=== PATIENT | female | born 1990 | race Caucasian/White ===

== ENCOUNTER 2021-01-25 14:10 | Emergency (ER) | payer OTHER, SELFPAY ==
[2021-01-25 14:25] VITALS: BP 105/64; PULSE 74; RESP 20; TEMP 37.1; O2SAT 96
--- NOTE | 2021-01-25 15:07 | ED.GENADULT ---
HPI - General Adult General Chief complaint: Back Pain/Injury Stated complaint: Back Injury Time Seen by Provider: 01/25/21 15:07 Source: patient and RN notes reviewed Mode of arrival: ambulatory Limitations: no limitations History of Present Illness HPI narrative: 30 year old female who presents to [facility] with complaints of lower back pain this morning with no recent injury to her back. Patient states has had back injury in the past with MRI showing she had a bulging lumbar disc but has never had any surgery to her back. Patient is wearing a walking boot to her left foot for previous foot injury 2 months ago and just started wearing boot this week after seeing a heading saw operator for continued issues with her foot. Patient states that she has some radiation of her pain to her buttocks into her upper posterior thighs but denies any tingling or numbness to her leg or feet. She reports that she has been taking Naprosyn and Tylenol for discomfort with pain presently throbbing at 7/10 MD complaint: back pain Onset (ago): day(s) (2) Radiation: other (to posterior thighs) Severity: moderate Severity scale (1-10): 7 Quality: other (throbbing) Pain Consistency: constant Relieving factors: medication and rest Exacerbating factors: movement Treatments prior to arrival: NSAID Related Data Home Medications Medication Instructions Recorded Confirmed buspirone mg 01/25/21 escitalopram oxalate mg 01/25/21 trazodone 01/25/21 ziprasidone HCl 01/25/21 Allergies Allergy/AdvReac Type Severity Reaction Status Date / Time No Known Allergies Allergy Unknown Verified 01/25/21 14:42 Review of Systems Review of Systems: Narrative: CONSTITUTIONAL: Denies fever, chills, or sweats. EYES: Denies visual changes, redness, or discharge. ENT: Denies rhinorrhea, congestion, sore throat, or otalgia. CARDIOVASCULAR: Denies chest pain, palpitations, or edema. RESPIRATORY: Denies cough or dyspnea. GASTROINTESTINAL: Denies abdominal pain, nausea, vomiting, or diarrhea. GENITOURINARY: Denies dysuria or hematuria. SKIN: Denies rash or itching. MUSCULOSKELETAL:Positive for lumbar back pain radiating to buttocks and upper posterior thighs, left foot discomfort and myalgia. NEUROLOGIC: Denies headache, numbness, or weakness. PSYCHIATRIC: Positive history of anxiety and depression. All systems reviewed & are unremarkable except as noted in HPI and below PMFSH Past Medical History Medical History (Updated 01/27/21 @ 16:50 by Laury Fry NP) Anxiety and depression Asthma Bulging lumbar disc Migraines Surgical History Surgical History (Updated 01/27/21 @ 16:42 by Laury Fry NP) No history of previous surgery Family History Family History (Updated 01/27/21 @ 15:31 by Laury Fry NP) Other No significant family history Social History Social History (Updated 01/27/21 @ 15:30 by Laury Fry NP) Smoking packs per day: 1 Smoking cigarettes per day: 20.0 Years smoked: 10 Smoking pack-years: 10.00 Smoking status: Former smoker Tobacco type: e-cigarettes/vaping Alcohol intake: former Alcohol use details: none since 2015 Substance use: former Substance use type: heroin Last use: none since 2015 Living arrangements: with family Gender identity (if verbalized by the patient): Female Exam Narrative: Exam Narrative: GENERAL: Well-appearing, well-nourished, and in no acute distress. HEAD: Normocephalic, atraumatic. EYES: PERRLA and EOMI. ENT: Nares clear, no rhinorrhea or epistaxis. Mucous membranes moist.TM's normal with good light reflex, throat pink with no exudates,lesions, or tonsil enlargement. NECK: Supple.no lymphadenopathy CHEST: Clear to auscultation. No respiratory distress.SAO2 96% on room air HEART: Regular rate and rhythm. No murmur heard. Normal peripheral pulses. ABDOMEN: Soft, nontender, nondistended, normal active bowel sounds. EXTREMITIES: Normal range of motion. No edema.Arvind
== END 2021-01-25 15:30 | disposition home or self-care (01) ==
PROVIDERS: Emergency Provider Registered Nurse; PCP Nurse Practitioner Adult Health
DX: M54.42 Lumbago with sciatica, left side (principal); M54.41 Lumbago with sciatica, right side; Z87.891 Personal history of nicotine dependence; J45.909 Unspecified asthma, uncomplicated; F41.9 Anxiety disorder, unspecified; F32.9 Major depressive disorder, single episode, unspecified
CPT/HCPCS: 99213; G0463

== ENCOUNTER 2021-02-10 16:39 | Emergency (ER) | payer OTHER, SELFPAY ==
--- NOTE | 2021-02-10 16:43 | ED.GENADULT ---
HPI - General Adult General Stated complaint: dizzy and nausea Time Seen by Provider: 02/10/21 16:43 Source: patient Mode of arrival: ambulatory Limitations: no limitations Related Data Home Medications Medication Instructions Recorded Confirmed buspirone mg 01/25/21 escitalopram oxalate mg 01/25/21 trazodone 01/25/21 ziprasidone HCl 01/25/21 Allergies Allergy/AdvReac Type Severity Reaction Status Date / Time No Known Allergies Allergy Unknown Verified 01/25/21 14:42 Review of Systems Review of Systems: Narrative: CONSTITUTIONAL: Denies fever, chills, or sweats. EYES: Denies visual changes, redness, or discharge. ENT: Denies rhinorrhea, congestion, sore throat, or otalgia. CARDIOVASCULAR: Denies chest pain, palpitations, or edema. RESPIRATORY: Denies cough or dyspnea. GASTROINTESTINAL: Denies abdominal pain, nausea, vomiting, or diarrhea. GENITOURINARY: Denies dysuria or hematuria. SKIN: Denies rash or itching. MUSCULOSKELETAL: Denies back pain, joint pain, or myalgia. NEUROLOGIC: Denies headache, numbness, or weakness. PSYCHIATRIC: Denies anxiety or depression. [facility] Past Medical History Medical History Anxiety and depression Asthma Bulging lumbar disc Migraines Surgical History Surgical History No history of previous surgery Family History Family History Other No significant family history Social History Social History Smoking packs per day: 1 Smoking cigarettes per day: 20.0 Years smoked: 10 Smoking pack-years: 10.00 Smoking status: Former smoker Tobacco type: e-cigarettes/vaping Alcohol intake: former Substance use: former Substance use type: heroin Last use: none since 2015 Gender identity (if verbalized by the patient): Female Comments At the time of my signature I agree with nursing past medical history, surgical, social, and family history. There is no relevant family history pertinent to the presenting complaint. Exam Narrative: Exam Narrative: GENERAL: Well-appearing, well-nourished, and in no acute distress. HEAD: Normocephalic, atraumatic. EYES: PERRLA and EOMI. ENT: Nares clear, no rhinorrhea or epistaxis. Mucous membranes moist. NECK: Supple. No lymphadenopathy CHEST: Clear to auscultation. No respiratory distress. HEART: Regular rate and rhythm. No murmur heard. Normal peripheral pulses. ABDOMEN: Soft, nontender, nondistended, normal active bowel sounds. EXTREMITIES: Normal range of motion. No edema. SKIN: Warm, dry, no rash. NEURO: No focal deficits. Alert and oriented x3. Course Vital Signs Vital signs: Vital signs reviewed Medical Decision Making Differential Diagnosis Differential Diagnosis: Differential diagnosis: Appendicitis, ovarian torsion, gallbladder disease, ovarian torsion, pancreatitis, lower lobe pneumonia,AAA, AMI or ACS, DKA, diverticulitis. Allergic rhinitis, chronic sinusitis, tonsillitis, acute sinusitis, infectious mononucleosis, seasonal influenza, pertussis, diphtheria, meningococcal disease, viral syndrome, viral bronchitis, RSV, community Critical Care Time Critical Care Time Critical Care Time: No Discharge Plan Discharge Prescriptions: No Action trazodone 50 mg tablet RF: 0 ziprasidone HCl 20 mg capsule RF: 0 buspirone 10 mg tablet RF: 0 escitalopram oxalate 20 mg tablet RF: 0 methylprednisolone [Medrol (Stephen)] 4 mg tablets,dose pack See Rx Instructions .ROUTE .COMPLEX Qty: 21 RF: 0 cyclobenzaprine 10 mg tablet 10 mg PO TID PRN (Reason: muscle spasm) Qty: 14 RF: 0
--- NOTE | 2021-02-10 18:18 | PC.NURSE ---
1640 per telephone, following registration prior to triage, Ragini requests a work note stating she was here today and could back to work. informed provider would see and evaluate her, however states she could not give a work note at this time. states she does not want be seen.
== END 2021-02-10 16:45 | disposition left against medical advice (07) ==
PROVIDERS: Emergency Provider Nurse Practitioner Family
DX: Z53.21 Procedure and treatment not carried out due to patient leaving prior to being seen by health care provider (principal)
CPT/HCPCS: 99199

== ENCOUNTER 2021-12-29 12:42 | Emergency (ER) | payer OTHER, SELFPAY ==
[2021-12-29] VITALS (8 sets, daily range): BP systolic 127–146; BP diastolic 66–84; PULSE 83–94; RESP 19–34; TEMP 36.4; O2SAT 94–97
--- NOTE | ~2021-12-29 | XR_ITS ---
EXAMINATION: XR chest 2V DATE: 12/29/2021 14:38 INDICATION: Cough and shortness of breath TECHNIQUE: PA and lateral views of the chest were obtained. COMPARISON: Chest radiograph dated 11/26/2017 FINDINGS: The lungs remain clear with no focal airspace opacities, pulmonary edema, pleural effusion or pneumot horax. The cardiomediastinal silhouette is normal. Visualized bones and soft tissues are unremarkable . IMPRESSION: 1. No acute cardiopulmonary disease. Reviewed, dictated and finalized at location A. [employer]
--- NOTE | 2021-12-29 12:54 | ED.SOB ---
HPI - SOB/Dyspnea General Chief Complaint: Shortness of Breath/Dyspnea Stated Complaint: sob, wheezing Time Seen by Provider: 12/29/21 12:47 Source: patient Mode of arrival: ambulatory Limitations: no limitations History of Present Illness HPI Narrative: Patient is a 31-year-old female complaining of shortness of breath, it is my asthma , coming by cough, nonproductive x2 weeks but worse for the past few days. Patient states that she takes albuterol for her asthma. Patient states that her asthma has been worse ever since she had Covid last month. Patient denies any chest pain, abdominal pain, nausea, vomiting, diaphoresis, fever or chills. Related Data Home Medications Medication Instructions Recorded Confirmed buspirone mg 01/25/21 escitalopram oxalate mg 01/25/21 trazodone 01/25/21 ziprasidone HCl 01/25/21 Allergies Allergy/AdvReac Type Severity Reaction Status Date / Time No Known Allergies Allergy Unknown Verified 02/10/21 16:49 Review of Systems Review of Systems: All systems reviewed & are unremarkable except as noted in HPI and below Constitutional: Constitutional: Denies body ache(s), Denies chills, Denies excessive sweating, Denies fatigue, Denies fever(s), Denies headache(s), Denies lethargy, Denies malaise, Denies weakness and Denies weight loss Eyes: Eyes: Denies blurry vision, Denies change in vision and Denies loss of vision ENT: Denies dizziness, Denies ear discharge, Denies headache(s), Denies lip swelling, Denies epistaxis, Denies nasal congestion, Denies neck pain, Denies throat swelling and Denies tongue swelling Cardiovascular: Cardiovascular: Denies chest pain, Denies chest pain at rest, Denies chest pain with activity, Denies diaphoresis, Denies rapid heart rate, Denies edema, Denies irregular heart rhythm, Denies lightheadedness and Denies palpitations Respiratory: Respiratory: Denies chest congestion and Denies hemoptysis Gastrointestinal: Gastrointestinal: Denies abdominal pain, Denies melena, Denies hematochezia, Denies diarrhea, Denies nausea, Denies vomiting and Denies hematemesis Musculoskeletal: Musculoskeletal: Denies abnormal gait, Denies deformity, Denies joint swelling, Denies limited range of motion, Denies neck pain and Denies numbness Neurologic: Denies Abnormal speech present, Denies abnormal gait, Denies confusion, Denies dizziness, Denies headache(s), Denies focal weakness, Denies loss of vision, Denies numbness, Denies Other visual disturbances, Denies Sensory deficit (Neuro) and Denies weakness Psychiatric: Psychiatric: Denies confusion, Denies depression, Denies auditory hallucinations, Denies homicidal ideation and Denies suicidal ideation Endocrine: Endocrine: Denies cold intolerance, Denies excessive sweating, Denies fatigue, Denies heat intolerance and Denies palpitations Hematologic/Lymphatic: Hematologic/Lymphatic: Denies easy bleeding and Denies easy bruising Allergic/Immunologic: Allergic/Immunologic: Denies lip swelling, Denies throat swelling and Denies tongue swelling PMFSH Past Medical History Medical History Anxiety and depression Asthma Bulging lumbar disc Migraines Surgical History Surgical History No history of previous surgery Family History Family History Other No significant family history Social History Social History Smoking packs per day: 1 Smoking cigarettes per day: 20.0 Years smoked: 10 Smoking pack-years: 10.00 Smoking status: Former smoker Tobacco type: e-cigarettes/vaping Alcohol intake: former Alcohol use details: none since 2015 Substance use: former Substance use type: heroin Last use: none since 2015 Gender identity (if verbalized by the patient): Female Exam Const: Gen
[2021-12-29] MEDS: IPRATROPIUM BR 0.02% INH SOLN 0.5 MG/2.5 ML VIAL INHALATION (12:57)
[2021-12-29] MEDS: ALBUTEROL SULFATE NEB 2.5 MG/3 ML INH 1.25 MG INHALATION (12:57)
[2021-12-29] MEDS: methylPREDNISolone SOD SUCC 125 MG VIAL (13:12)
[2021-12-29 13:22] LABS: Basophils Absolute Auto 0.1 K/mm3 (0.0-0.1); Basophils Percent Auto 0.5 % (0.2-1.2); Eosinophils Absolute Auto 0.5 K/mm3 (0-0.3); Eosinophils Percent Auto 4.7 % (0-4.4); Hematocrit 40.8 % (37.0-47.0); Hemoglobin 13.9 g/dL (12.0-15.0); Immature Granulocyte Absolute 0.05 K/mm3 (0.00-0.031); Immature Granulocyte Percent A 0.5 % (0-0.5); Lymphocytes Absolute Auto 2.84 K/mm3 (0.9-3.2); Lymphocytes Percent Auto 26.3 % (18.3-44.2); Mean Corpuscular HGB Conc 34.1 g/dl (32-36); Mean Corpuscular Hemoglobin 31.2 pg (26-34); Mean Corpuscular Volume 91.7 fl (80-100); Mean Platelet Volume 8.9 fl (7.4-10.4); Monocytes Absolute Auto 0.8 K/mm3 (0.1-0.6); Monocytes Percent Auto 7.5 % (2.6-8.5); Neutrophils Absolute Auto 6.5 K/mm3 (1.3-6.7); Neutrophils Percent Auto 60.5 % (45.5-73.1); Platelet Count Result 334 k/mm3 (150-375); Red Blood Count 4.45 M/mm3 (4.2-5.4); Red Cell Distribution Width 12.3 % (11.5-14.5); White Blood Count 10.8 K/mm3 (4.5-10.0)
[2021-12-29 13:27] LABS: Alveolar/Arterial O2 Gradient 76.8 mmHg; Base Excess ABG 0.2 mEq/l (+/-2.0); Carboxyhemoglobin 0.2 % THb (0-2.0); Fractional Inspired Oxygen 28 %; HCO3 ABG 25.8 mEq/l (22.0-26.0); Methemoglobin ABG 0.2 %THb (0-1.5); Oxygen Content ABG 18.8 %vol (16.0-22.0); Oxygen Saturation ABG 93.3 % (95.0-100.0); PCO2 ABG 45.6 mmHg (35.0-45.0); PO2 FiO2 Ratio Arterial Blood 2.46 %; Reduced Hemoglobin 6.6 %THb (0-5.0); Total Hemoglobin 14.4 g/dL (12.0-18.0); pH ABG 7.371 (7.350-7.450)
[2021-12-29 13:28] LABS: Device NASAL CANNULA; Modified Allen's Test Pass; Site Drawn LEFT RADIAL
[2021-12-29 13:32] LABS: Anion Gap 7 mmol/L (8-16); Blood Urea Nitrogen 16 mg/dL (7-17); Calcium 9.4 mg/dL (8.4-10.2); Carbon Dioxide 27 mmol/L (22-30); Chloride 104 mmol/L (98-107); Estimated CRCL calculation 94 ml/min; Estimated Glomerular Filt Rate > 60; Glucose 142 mg/dL (65-110); Potassium 3.8 mmol/L (3.4-5.0); Sodium 138 mmol/L (137-145)
[2021-12-29 13:41] LABS: NT Pro B Type Natriuretic Pept 25 pg/mL (5-100)
--- NOTE | 2021-12-29 14:15 | PC.NURSE ---
pt complaining of R. Wrist IV hurting and insisting on the IV to be taken out. IV removed w/ catheter intact.
[2021-12-29 15:15] LABS: D Dimer 0.27 ug/mL (<0.48)
== END 2021-12-29 16:44 | disposition home or self-care (01) ==
PROVIDERS: Emergency Provider Emergency Medicine; PCP Nurse Practitioner Family
DX: J45.901 Unspecified asthma with (acute) exacerbation (principal); F41.9 Anxiety disorder, unspecified; F32.A Depression, unspecified; Z87.891 Personal history of nicotine dependence
CPT/HCPCS: 36415; 36600; 71046; 80048; 82375; 82805; 83050; 83880; 85025; 85380; 96374; 99284; J2930

== ENCOUNTER 2022-03-07 06:08 | Emergency (ER) | payer OTHER, SELFPAY ==
[2022-03-07 06:18] VITALS: BP 121/74; PULSE 63; RESP 14; TEMP 36.3; O2SAT 99
--- NOTE | 2022-03-07 06:27 | ED.ABDPAIN ---
HPI - Abdominal Pain General Chief Complaint: Abdominal Pain Stated Complaint: Abd pain Time Seen by Provider: 03/07/22 06:20 Source: patient Mode of arrival: ambulatory Limitations: no limitations History of Present Illness HPI narrative: 31-year-old female presents emergency room secondary to onset of mid abdominal pain approximately 20 to 30 minutes prior to come to the emergency room. She is had intermittent episodes abdominal pain for quite some time it sounds like she is at evaluation the work-up in the past with no clear-cut etiology. She states she was eating her normal breakfast this morning when the pain started. The pain seems to come and go and she appears to be in no distress this time. She states she has some mild nausea but no vomiting. No diarrhea. Last menstrual period was noted to be 3 months ago which is not unusual for her she states she only has a period every 3 to 4 months. She is been one time in the past and had a miscarriage at 12 weeks. No documented history of any gallbladder issues. 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 Related Data Home Medications Medication Instructions Recorded Confirmed buspirone 10 mg PO BID 01/25/21 escitalopram oxalate 20 mg PO DAILY 01/25/21 trazodone 200 mg PO QPM 01/25/21 ziprasidone HCl [Geodon] 40 mg PO BID 03/07/22 Allergies Allergy/AdvReac Type Severity Reaction Status Date / Time No Known Allergies Allergy Unknown Verified 03/07/22 06:34 Review of Systems Review of Systems: CONSTITUTIONAL: Denies fever, chills, or sweats. EYES: Denies visual changes, redness, or discharge. ENT: Denies rhinorrhea, congestion, sore throat, or otalgia. CARDIOVASCULAR: Denies chest pain, palpitations, or edema. RESPIRATORY: Denies cough or dyspnea. GASTROINTESTINAL: Having cramping mid abdominal pain. Denies any vomiting. No blood in her stool. GENITOURINARY: Denies dysuria or hematuria. SKIN: Denies rash or itching. MUSCULOSKELETAL: Denies back pain, joint pain, or myalgia. NEUROLOGIC: Denies headache, numbness, or weakness. PSYCHIATRIC: Denies anxiety or depression. [facility] Past Medical History Medical History Anxiety and depression Asthma Bulging lumbar disc Migraines Surgical History Surgical History No history of previous surgery Family History Family History Other No significant family history Social History Social History Smoking packs per day: 1 Smoking cigarettes per day: 20.0 Years smoked: 10 Smoking pack-years: 10.00 Smoking status: Former smoker Tobacco type: e-cigarettes/vaping Alcohol intake: former Alcohol use details: none since 2016 Substance use: former Substance use type: heroin Last use: none since 2015 Gender identity (if verbalized by the patient): Female Exam Narrative: APPEARANCE: Well appearing, no pain or distress, well-nourished. Head normocephalic and atraumatic. EYES: PERRLA/EOMI, conjunctivae very clear. NOSE: Normal with no drainage EARS:TMS clear Felipe Rivero, with good light reflex. THROAT: Pharynx clear, no exudate. NECK: Supple. No adenopathy, no masses. RESPIRATORY: Airway patent, respirations nonlabored. Clear to auscultation bilaterally, no rales, rhonchi, wheezing. CARDIOVASCULAR: Regular rate and rhythm without murmurs, rubs, or gallops. ABDOMINAL: Soft, nontender, nondistended, no hepatosplenomegaly. Hyperactive bowel sounds Musculoskeletal: Moves all extremities. Strength/ROM intact, No edema, No calf tenderness. NEURO: Alert. Cranial nerves II through XII intact. Normal gait. Good coordination. Nonfocal examination. SKIN:: Warm, dry. Normal Color PSYCHIATRIC: Normal affect/mood, normal
[2022-03-07 06:40] LABS: Basophils Percent Auto 0.3 % (0.2-1.2); Eosinophils Absolute Auto 0.3 K/mm3 (0-0.3); Eosinophils Percent Auto 2.2 % (0-4.4); Hematocrit 38.6 % (37.0-47.0); Hemoglobin 13.6 g/dL (12.0-15.0); Immature Granulocyte Absolute 0.05 K/mm3 (0.00-0.031); Immature Granulocyte Percent A 0.4 % (0-0.5); Lymphocytes Absolute Auto 1.88 K/mm3 (0.9-3.2); Lymphocytes Percent Auto 14.5 % (18.3-44.2); Mean Corpuscular HGB Conc 35.2 g/dl (32-36); Mean Corpuscular Hemoglobin 31.5 pg (26-34); Mean Corpuscular Volume 89.4 fl (80-100); Mean Platelet Volume 9.1 fl (7.4-10.4); Neutrophils Absolute Auto 9.7 K/mm3 (1.3-6.7); Neutrophils Percent Auto 74.6 % (45.5-73.1); Platelet Count Result 353 k/mm3 (150-375); Red Blood Count 4.32 M/mm3 (4.2-5.4); Red Cell Distribution Width 11.7 % (11.5-14.5)
[2022-03-07] MEDS: HYOSCYAMINE SULFATE 0.125 MG TABLET PO (06:41)
[2022-03-07 06:43] LABS: Appearance Urine Clear (Clear); Bilirubin Urine Negative (Negative); Blood Urine Negative (Negative); Glucose Urine UA Negative (Negative); Ketones Urine Negative (Negative); Leukocyte Esterase Ur Negative LEU/UL (Negative); Nitrate Urine Negative (Negative); Protein Urine Negative (Negative); Urobilinogen Urine 0.2 mg/dL (<2.0)
[2022-03-07 06:45] LABS: Add Urine Microscopic? NO; Color Urine Light Yellow (Yellow)
[2022-03-07 06:50] LABS: Alanine Aminotransferase 31 U/L (4-35); Albumin Level 4.5 g/dL (3.5-5.1); Alkaline Phosphatase 59 U/L (38-126); Anion Gap 9 mmol/L (8-16); Aspartate Amino Transferase 28 U/L (14-36); Bilirubin,Total 0.4 mg/dL (0.2-1.3); Blood Urea Nitrogen 15 mg/dL (7-17); Calcium 8.9 mg/dL (8.4-10.2); Carbon Dioxide 22 mmol/L (22-30); Chloride 104 mmol/L (98-107); Estimated Glomerular Filt Rate > 60; Glucose 155 mg/dL (65-110); Lipase 86 U/L (23-300); Potassium 3.9 mmol/L (3.4-5.0); Sodium 135 mmol/L (137-145)
[2022-03-07 07:19] VITALS: BP 117/73; PULSE 66; RESP 15; O2SAT 99
== END 2022-03-07 07:27 | disposition home or self-care (01) ==
PROVIDERS: Emergency Provider Emergency Medicine; PCP Nurse Practitioner Family
DX: K58.9 Irritable bowel syndrome, unspecified (principal); F41.9 Anxiety disorder, unspecified; F32.A Depression, unspecified; J45.909 Unspecified asthma, uncomplicated; Z87.891 Personal history of nicotine dependence
CPT/HCPCS: 36415; 80053; 81003; 81025; 83690; 85025; 99283; A9270

== ENCOUNTER 2022-04-16 10:53 | Emergency (ER) | payer OTHER, SELFPAY ==
--- NOTE | ~2022-04-16 | CT_ITS ---
EXAMINATION: CT BRAIN W/O DATE: 04/16/2022 12:04 INDICATION: Slurred speech and dizziness. History of migraine headaches. TECHNIQUE: Computed tomography (CT) of the head was performed without intravenous contrast. The dose- length product was 605.33 mGy-cm. Automated exposure control and iterative reconstruction technique w ere employed. COMPARISON: No prior studies for comparison. FINDINGS: Normal brain parenchymal volume for age. Normal barrios-white differentiation. No acute intrac ranial hemorrhage, infarction, mass or mass effect. No ventriculomegaly or midline shift. Midline sagittal images demonstrate a normal corpus callosum, c raniovertebral junction and sella turcica. Basilar cisterns are patent. There is mild mucosal thickening of the ethmoid sinuses. IMPRESSION: 1. No acute intracranial abnormality. 2: Mild ethmoid sinus disease. Reviewed, dictated and finalized at location A.
[2022-04-16 10:57] VITALS: BP 133/82; PULSE 72; RESP 15; TEMP 36.7; O2SAT 98
--- NOTE | 2022-04-16 11:39 | ECG_ITS ---
Measurements Intervals [place] Rate: 63 P: 56 GA: 196 QRS: -1 QRSD: 105 T: 18 QT: 424 QTc: 437 Interpretive Statements SINUS RHYTHM DELAYED PRECORDIAL R/S TRANSITION BORDERLINE ECG Electronically Signed On 04-16-2022 12:40:37 CDT by Michele Dumont D.O.
[2022-04-16 11:45] VITALS: BP 106/59; PULSE 66; RESP 14; O2SAT 98
--- NOTE | 2022-04-16 11:47 | ED.GENADULT ---
HPI - General Adult General Chief complaint: Allergic Reaction Stated complaint: allergic reaction Time Seen by Provider: 04/16/22 11:07 History of Present Illness HPI narrative: 31-year-old female presents to the emergency room for evaluation of a slurred speech and the feeling that her tongue is swelling. Patient states that she is experienced the symptoms on at least 8 other occasions recently, and is accompanied with what she describes as not getting enough sleep. Patient states that slurred speech and feeling of tongue swelling last about 30 minutes, and usually resolves on its own. Patient denies any unilateral weakness, loss of consciousness, altered mental status. Denies any rash Related Data Home Medications Medication Instructions Recorded Confirmed buspirone 10 mg PO BID 01/25/21 escitalopram oxalate 20 mg PO DAILY 01/25/21 trazodone 200 mg PO QPM 01/25/21 ziprasidone HCl [Geodon] 40 mg PO BID 03/07/22 Allergies Allergy/AdvReac Type Severity Reaction Status Date / Time No Known Allergies Allergy Unknown Verified 04/16/22 11:01 Review of Systems Review of Systems: CONSTITUTIONAL: Denies fever, chills, or sweats. EYES: Denies visual changes, redness, or discharge. ENT: Denies rhinorrhea, congestion, sore throat, or otalgia. CARDIOVASCULAR: Denies chest pain, palpitations, or edema. RESPIRATORY: Denies cough or dyspnea. GASTROINTESTINAL: Denies abdominal pain, nausea, vomiting, or diarrhea. GENITOURINARY: Denies dysuria or hematuria. SKIN: Denies rash or itching. MUSCULOSKELETAL: Denies back pain, joint pain, or myalgia. NEUROLOGIC: Denies headache, numbness, dizziness, or weakness. PSYCHIATRIC: Denies anxiety or depression. [facility] Past Medical History Medical History Anxiety and depression Asthma Bulging lumbar disc Migraines Surgical History Surgical History No history of previous surgery Family History Family History Other No significant family history Social History Social History Smoking packs per day: 1 Smoking cigarettes per day: 20.0 Years smoked: 10 Smoking pack-years: 10.00 Smoking status: Former smoker Tobacco type: e-cigarettes/vaping Alcohol intake: former Alcohol use details: none since 2015 Substance use: former Substance use type: heroin Last use: none since 2015 Gender identity (if verbalized by the patient): Female Exam Narrative: GENERAL: Well-appearing, well-nourished, and in no acute distress. HEAD: Normocephalic, atraumatic. EYES: PERRLA and EOMI. CHEST: Clear to auscultation. No respiratory distress. No wheezes rales or rhonchi HEART: Regular rate and rhythm. No murmur heard. Normal peripheral pulses. ABDOMEN: Soft, nontender, nondistended, normal active bowel sounds. EXTREMITIES: Normal range of motion. No edema. SKIN: Warm, dry, no rash. NEURO: No focal deficits. Alert and oriented x3. Cranial nerves II through XII are intact. No unilateral deficits/weakness; bilateral UE/LE 5/5; =[employer] PSYCH: Normal mood and affect. Course Vital Signs Vital signs: Vital Signs Temperature 36.7 C 04/16/22 10:57 Pulse Rate 72 04/16/22 10:57 Respiratory Rate 15 04/16/22 10:57 Blood Pressure 133/82 04/16/22 10:57 Pulse Oximetry 98 04/16/22 10:57 Temperature 36.7 C 04/16/22 10:57 Pulse Rate 66 04/16/22 11:45 Respiratory Rate 14 04/16/22 11:45 Blood Pressure 106/59 L 04/16/22 11:45 Pulse Oximetry 98 04/16/22 11:45 Medical Decision Making MDM Narrative Medical decision making narrative: 31-year-old female present to the emergency room for evaluation of a cute onset of slurred speech with tongue swelling. Patient states that the symptoms lasted about 30 minutes and then resolved on aroun
[2022-04-16 11:55] LABS: Basophils Percent Auto 0.3 % (0.2-1.2); Eosinophils Absolute Auto 0.3 K/mm3 (0-0.3); Eosinophils Percent Auto 2.1 % (0-4.4); Hematocrit 40.3 % (37.0-47.0); Hemoglobin 13.6 g/dL (12.0-15.0); Immature Granulocyte Absolute 0.06 K/mm3 (0.00-0.031); Immature Granulocyte Percent A 0.5 % (0-0.5); Lymphocytes Absolute Auto 2.72 K/mm3 (0.9-3.2); Lymphocytes Percent Auto 21.9 % (18.3-44.2); Mean Corpuscular HGB Conc 33.7 g/dl (32-36); Mean Corpuscular Hemoglobin 31.3 pg (26-34); Mean Corpuscular Volume 92.6 fl (80-100); Mean Platelet Volume 9.4 fl (7.4-10.4); Monocytes Absolute Auto 0.9 K/mm3 (0.1-0.6); Monocytes Percent Auto 6.9 % (2.6-8.5); Neutrophils Absolute Auto 8.5 K/mm3 (1.3-6.7); Neutrophils Percent Auto 68.3 % (45.5-73.1); Platelet Count Result 378 k/mm3 (150-375); Red Blood Count 4.35 M/mm3 (4.2-5.4); Red Cell Distribution Width 11.9 % (11.5-14.5); White Blood Count 12.4 K/mm3 (4.5-10.0)
--- NOTE | 2022-04-16 12:01 | PC.NURSE ---
Pt to CT scan via stretcher.
[2022-04-16 12:37] LABS: Alanine Aminotransferase 42 U/L (6-35); Albumin Level 4.6 g/dL (3.5-5.1); Alkaline Phosphatase 60 U/L (38-126); Anion Gap 9 mmol/L (8-16); Aspartate Amino Transferase 36 U/L (14-36); Bilirubin,Total 0.3 mg/dL (0.2-1.3); Blood Urea Nitrogen 10 mg/dL (7-17); Calcium 9.1 mg/dL (8.4-10.2); Carbon Dioxide 28 mmol/L (22-30); Chloride 102 mmol/L (98-107); Estimated CRCL calculation 103 ml/min; Estimated Glomerular Filt Rate > 60; Glucose 100 mg/dL (65-110); Potassium 3.9 mmol/L (3.4-5.0); Sodium 139 mmol/L (137-145)
[2022-04-16 12:46] LABS: Troponin I < 0.012 ng/mL (0.000-0.034)
== END 2022-04-16 13:26 | disposition home or self-care (01) ==
PROVIDERS: Emergency Provider Nurse Practitioner Family; PCP Nurse Practitioner Family
DX: T78.3XXA Angioneurotic edema, initial encounter (principal); J45.909 Unspecified asthma, uncomplicated; F41.9 Anxiety disorder, unspecified; F32.A Depression, unspecified; Z87.891 Personal history of nicotine dependence; J32.2 Chronic ethmoidal sinusitis; R94.31 Abnormal electrocardiogram [ECG] [EKG]
CPT/HCPCS: 36415; 70450; 80053; 81025; 84484; 85025; 93005; 99284

== ENCOUNTER 2022-05-02 11:47 | Emergency (ER) | payer OTHER, SELFPAY ==
[2022-05-02 11:49] VITALS: BP 141/68; PULSE 86; RESP 18; TEMP 36.2; O2SAT 99
--- NOTE | 2022-05-02 12:10 | ED.BACK ---
HPI - Back Pain/Injury General Chief Complaint: Back Pain/Injury Stated Complaint: back pain Time Seen by Provider: 05/02/22 11:58 History of Present Illness HPI Narrative: 31-year-old female with a history of lumbar spondylosis presents the emergency room for evaluation of lower back pain that is worse when she changes positions. Patient states the pain radiates down both legs, left greater than the right. Patient describes the radiating pain as sharp. Patient denies any saddle anesthesia, changes to urinary or bowel habits patient denies any recent injury or trauma. Patient denies fever patient denies loss of lower extremity strength Related Data Home Medications Medication Instructions Recorded Confirmed buspirone 10 mg tablet 10 mg PO BID 01/25/21 escitalopram oxalate 20 mg tablet 20 mg PO DAILY 01/25/21 trazodone 50 mg tablet 200 mg PO QPM 01/25/21 ziprasidone HCl 40 mg capsule 40 mg PO BID 03/07/22 ([place]) Allergies Allergy/AdvReac Type Severity Reaction Status Date / Time No Known Allergies Allergy Unknown Verified 04/16/22 11:01 Review of Systems Review of Systems: CONSTITUTIONAL: Denies fever, chills, or sweats. EYES: Denies visual changes, redness, or discharge. ENT: Denies rhinorrhea, congestion, sore throat, or otalgia. CARDIOVASCULAR: Denies chest pain, palpitations, or edema. RESPIRATORY: Denies cough or dyspnea. GASTROINTESTINAL: Denies abdominal pain, nausea, vomiting, or diarrhea. GENITOURINARY: Denies dysuria or hematuria. SKIN: Denies rash or itching. MUSCULOSKELETAL: Ports low back pain NEUROLOGIC: Denies headache, numbness, dizziness, or weakness. PSYCHIATRIC: Denies anxiety or depression. FOR[facility]LY [facility] Past Medical History Medical History Anxiety and depression Asthma Bulging lumbar disc Migraines Surgical History Surgical History No history of previous surgery Family History Family History Other No significant family history Social History Social History Smoking packs per day: 1 Smoking cigarettes per day: 20.0 Years smoked: 10 Smoking pack-years: 10.00 Smoking status: Former smoker Tobacco type: e-cigarettes/vaping Alcohol intake: former Alcohol use details: none since 2015 Substance use: former Substance use type: heroin Last use: none since 2015 Gender identity (if verbalized by the patient): Female Exam Narrative: GENERAL: Well-appearing, well-nourished, and in no acute distress. HEAD: Normocephalic, atraumatic. EYES: PERRLA and EOMI. ENT: Nares clear, no rhinorrhea or epistaxis. Mucous membranes moist. Oropharynx without tonsillar hypertrophy exudate or other lesions. Bilateral TMs pearly barrios nonbulging NECK: Supple. No adenopathy or masses. No carotid bruits or JVD CHEST: Clear to auscultation. No respiratory distress. No wheezes rales or rhonchi HEART: Regular rate and rhythm. No murmur heard. Normal peripheral pulses. ABDOMEN: Soft, nontender, nondistended, normal active bowel sounds. EXTREMITIES: Lumbar spine: No midline tenderness, no step-offs, full range of motion with rotation and lateral bend, tenderness to the thoracolumbar fascia, and left SI joint. Negative SLE bilaterally SKIN: Warm, dry, no rash. NEURO: No focal deficits. Alert and oriented x3. No saddle anesthesia PSYCH: Normal mood and affect. Course Vital Signs Vital signs: Vital Signs Temperature 36.2 C L 05/02/22 11:49 Pulse Rate 86 05/02/22 11:49 Respiratory Rate 18 05/02/22 11:49 Blood Pressure 141/68 H 05/02/22 11:49 Pulse Oximetry 99 05/02/22 11:49 Oxygen Delivery Room Air 05/02/22 11:49 Temperature 36.2 C L 05/02/22 11:49 Pulse Rate 86 05/02/22 11:49 Respiratory Rate 18 05/02/22 11:49 Blood Pressure 141/68
[2022-05-02 12:34] VITALS: BP 126/74; PULSE 76; RESP 16; TEMP 36.8; O2SAT 100
== END 2022-05-02 12:36 | disposition home or self-care (01) ==
PROVIDERS: Emergency Provider Nurse Practitioner Family; PCP Nurse Practitioner Family
DX: M54.16 Radiculopathy, lumbar region (principal); J45.909 Unspecified asthma, uncomplicated; F41.9 Anxiety disorder, unspecified; F32.A Depression, unspecified; Z87.891 Personal history of nicotine dependence
CPT/HCPCS: 96372; 99283; J1100

== ENCOUNTER 2022-05-16 07:59 | Emergency (ER) | payer OTHER, SELFPAY ==
--- NOTE | 2022-05-16 08:03 | ED.ALLEREA ---
HPI - Allergic Reaction General Chief complaint: Unspecified Stated complaint: allergic reaction Time Seen by Provider: 05/16/22 08:03 History of Present Illness HPI narrative: Patient is a 31-year-old female with a history of bipolar disorder, presenting to the emergency department for evaluation of involuntary tongue movements. Patient reports that she is not able to keep her tongue and her mouth. Patient states this has occurred before and her psychiatrist, Dr. Cat, out of [facility], affiliated with [facility], has changed her medicatoins in the past. Patient denies any tongue swelling, difficulty tolerating her secretions, shortness of breath. She denies facial twitching, numbness, involuntary hand movement, or recent medication changes. She denies pain of any sort, no headache pain, chest pain or abdominal pain. Medications reviewed, patient takes 10 mg buspirone twice daily, cetirizine 10 mg twice daily, citalopram 20 mg daily, superset on, 40 mg twice daily. Related Data Home Medications Medication Instructions Recorded Confirmed buspirone 10 mg tablet 10 mg PO BID 01/25/21 escitalopram oxalate 20 mg tablet 20 mg PO DAILY 01/25/21 trazodone 50 mg tablet 200 mg PO QPM 01/25/21 ziprasidone HCl 40 mg capsule 40 mg PO BID 03/07/22 ([place]) Allergies Allergy/AdvReac Type Severity Reaction Status Date / Time No Known Allergies Allergy Unknown Verified 05/16/22 08:09 Review of Systems Review of Systems: CONSTITUTIONAL: Denies fever, chills, or sweats. EYES: Denies visual changes, redness, or discharge. ENT: Denies rhinorrhea, congestion, sore throat, or otalgia. Reports involuntary tongue movement. CARDIOVASCULAR: Denies chest pain, palpitations, or edema. RESPIRATORY: Denies cough or dyspnea. GASTROINTESTINAL: Denies abdominal pain, nausea, vomiting, or diarrhea. GENITOURINARY: Denies dysuria or hematuria. SKIN: Denies rash or itching. MUSCULOSKELETAL: Denies back pain, joint pain, or myalgia. NEUROLOGIC: Denies headache, numbness, or weakness. PSYCH: Pt with history of depression PMFSH Past Medical History Medical History (Updated 05/16/22 @ 10:11 by Laury Suarez MD) Anxiety and depression Asthma Bulging lumbar disc Low back pain Migraines Surgical History Surgical History No history of previous surgery Family History Family History Other No significant family history Social History Social History Smoking packs per day: 1 Smoking cigarettes per day: 20.0 Years smoked: 10 Smoking pack-years: 10.00 Smoking status: Former smoker Tobacco type: e-cigarettes/vaping Alcohol intake: former Alcohol use details: none since 2015 Substance use: former Substance use type: heroin Last use: none since 2015 Gender identity (if verbalized by the patient): Female Exam Narrative: GENERAL: Awake, alert, conversant HEAD: Normocephalic, atraumatic. EYES: PERRLA and EOMI. ENT: Nares clear, no rhinorrhea or epistaxis. Mucous membranes moist. Tongue is midline. No tongue edema. No trismus. No edema of the uvula. There is no elevation of the lower palate. No tongue protrusion. When patient is speaking, symptoms are resolved. NECK: Supple. No lymphadenopathy. No neck edema. CHEST: No respiratory distress, breathing even and non labored HEART: Regular rate, sinus rhythm ABDOMEN:Non distended, non tender EXTREMITIES: Normal range of motion. No edema. SKIN: Warm, dry, no rash. NEURO:No focal deficits. Alert and oriented x3 Course Vital Signs Vital signs: Vital Signs Temperature 36.7 C 05/16/22 08:04 Pulse Rate 98 05/16/22 08:04 Respiratory Rate 18 05/16/22 08:04 Blood Pressure 130/80 05/16/22 08:04 Pulse Oximetry 99 05/16/22 08:04 Oxygen Delivery Room Air 05/16/22 08:04
[2022-05-16 08:04] VITALS: BP 130/80; PULSE 98; RESP 18; TEMP 36.7; O2SAT 99
[2022-05-16 08:56] LABS: Basophils Percent Auto 0.3 % (0.2-1.2); Eosinophils Absolute Auto 0.2 K/mm3 (0-0.3); Eosinophils Percent Auto 1.3 % (0-4.4); Hematocrit 40.3 % (37.0-47.0); Hemoglobin 13.3 g/dL (12.0-15.0); Immature Granulocyte Absolute 0.03 K/mm3 (0.00-0.031); Immature Granulocyte Percent A 0.3 % (0-0.5); Lymphocytes Absolute Auto 1.61 K/mm3 (0.9-3.2); Lymphocytes Percent Auto 14.3 % (18.3-44.2); Mean Corpuscular Hemoglobin 30.9 pg (26-34); Mean Corpuscular Volume 93.5 fl (80-100); Mean Platelet Volume 9.1 fl (7.4-10.4); Monocytes Absolute Auto 0.7 K/mm3 (0.1-0.6); Monocytes Percent Auto 6.3 % (2.6-8.5); Neutrophils Absolute Auto 8.8 K/mm3 (1.3-6.7); Neutrophils Percent Auto 77.5 % (45.5-73.1); Platelet Count Result 320 k/mm3 (150-375); Red Blood Count 4.31 M/mm3 (4.2-5.4); Red Cell Distribution Width 12.1 % (11.5-14.5); White Blood Count 11.3 K/mm3 (4.5-10.0)
[2022-05-16] MEDS: LORazepam (*CRX) 0.5 MG TABLET PO (09:00)
[2022-05-16 09:07] LABS: Anion Gap 10 mmol/L (8-16); Blood Urea Nitrogen 14 mg/dL (7-17); Calcium 9.1 mg/dL (8.4-10.2); Carbon Dioxide 23 mmol/L (22-30); Chloride 107 mmol/L (98-107); Estimated Glomerular Filt Rate > 60; Glucose 127 mg/dL (65-110); Potassium 3.8 mmol/L (3.4-5.0); Sodium 140 mmol/L (137-145)
[2022-05-16 09:32] VITALS: BP 120/76; PULSE 90; RESP 17; O2SAT 99
== END 2022-05-16 10:28 | disposition home or self-care (01) ==
PROVIDERS: Emergency Provider Emergency Medicine; PCP Nurse Practitioner Family
DX: R25.3 Fasciculation (principal); T50.905A Adverse effect of unspecified drugs, medicaments and biological substances, initial encounter; F41.9 Anxiety disorder, unspecified; F32.9 Major depressive disorder, single episode, unspecified; J45.909 Unspecified asthma, uncomplicated
CPT/HCPCS: 36415; 80048; 85025; 99283; A9270

== ENCOUNTER 2023-01-24 21:27 | Emergency (ER) | payer OTHER, SELFPAY ==
[2023-01-24 21:48] VITALS: BP 122/71; PULSE 71; RESP 17; TEMP 36.7; O2SAT 98
[2023-01-24 22:10] LABS: Basophils Absolute Auto 0.1 K/mm3 (0.0-0.1); Basophils Percent Auto 0.4 % (0.2-1.2); Eosinophils Absolute Auto 0.2 K/mm3 (0-0.3); Eosinophils Percent Auto 1.2 % (0-4.4); Hematocrit 41.2 % (37.0-47.0); Hemoglobin 13.9 g/dL (12.0-15.0); Immature Granulocyte Absolute 0.06 K/mm3 (0.00-0.031); Immature Granulocyte Percent A 0.4 % (0-0.5); Lymphocytes Absolute Auto 2.77 K/mm3 (0.9-3.2); Lymphocytes Percent Auto 16.7 % (18.3-44.2); Mean Corpuscular HGB Conc 33.7 g/dl (32-36); Mean Corpuscular Hemoglobin 31.1 pg (26-34); Mean Corpuscular Volume 92.2 fl (80-100); Mean Platelet Volume 8.7 fl (7.4-10.4); Monocytes Absolute Auto 0.9 K/mm3 (0.1-0.6); Monocytes Percent Auto 5.5 % (2.6-8.5); Neutrophils Absolute Auto 12.6 K/mm3 (1.3-6.7); Neutrophils Percent Auto 75.8 % (45.5-73.1); Platelet Count Result 406 k/mm3 (150-375); Red Blood Count 4.47 M/mm3 (4.2-5.4); Red Cell Distribution Width 12.4 % (11.5-14.5); White Blood Count 16.6 K/mm3 (4.5-10.0)
[2023-01-24 22:18] LABS: Ethanol < 10 mg/dL (<10)
[2023-01-24 22:46] LABS: Influenza A QL RT-PCR Negative (Negative); Influenza B QL RT-PCR Negative (Negative); SARS-CoV-2 RNA PCR Negative
[2023-01-24 22:50] LABS: Appearance Urine Clear (Clear); Bacteria Urine Rare /hpf; Bilirubin Urine Negative (Negative); Blood Urine Negative (Negative); Color Urine Yellow (Yellow); Glucose Urine UA Negative (Negative); Ketones Urine Negative (Negative); Leukocyte Esterase Ur Negative LEU/UL (Negative); Nitrate Urine Negative (Negative); Protein Urine Trace mg/dL (Negative); RBC Urine 0-2 /hpf (0-2); Specific Grav Ur 1.027 (1.001-1.035); Squamous Epithelial Cell Urine Few /hpf (Few); Urobilinogen Urine 0.2 mg/dL (<2.0); pH Urine 5.5 (5.0-9.0)
[2023-01-24 23:05] LABS: Add Urine Microscopic? YES
[2023-01-24 23:35] LABS: Amphetamine Screen Urine Negative (Negative); Barbiturate Screen Urine Negative (Negative); Benzodiazepines Screen Urine Negative (Negative); Cannabinoid Screen Urine Negative (Negative); Cocaine Screen Urine Negative (Negative); Methadone Screen Urine Negative (Negative); Opiate Screen Urine Negative (Negative); Phencyclidine Screen Urine Negative (Negative)
[2023-01-25 00:52] LABS: Alanine Aminotransferase 30 U/L (6-35); Albumin Level 4.5 g/dL (3.5-5.1); Alkaline Phosphatase 58 U/L (38-126); Anion Gap 8 mmol/L (8-16); Aspartate Amino Transferase 27 U/L (14-36); Bilirubin,Total 0.4 mg/dL (0.2-1.3); Blood Urea Nitrogen 14 mg/dL (7-17); Calcium 9.4 mg/dL (8.4-10.2); Carbon Dioxide 31 mmol/L (22-30); Chloride 99 mmol/L (98-107); Estimated CRCL calculation 114 ml/min; Estimated Glomerular Filt Rate > 60; Glucose 103 mg/dL (65-110); Potassium 3.7 mmol/L (3.4-5.0); Sodium 138 mmol/L (137-145)
--- NOTE | 2023-01-25 01:16 | ED.GENADULT ---
HPI - General Adult General Chief complaint: Psychiatric Symptoms <Isaiah Bryant MD - Last Filed: 01/25/23 01:18> Stated complaint: SI <Isaiah Bryant MD - Last Filed: 01/25/23 01:18> Time Seen by Provider: 01/24/23 23:29 <Isaiah Bryant MD - Last Filed: 01/25/23 01:18> History of Present Illness HPI narrative: Patient 32-year-old female who presents the emergency department with chief complaint of suicidal ideation. Patient reports that she has been feeling depressed for some time and has been having thoughts of harming herself the patient states that she plans on overdose on her medications and reports that she has not overdosed and reports that she has been hospitalized previously. The patient reports that she has been trying to get her primary psychiatrist to change her anxiety medications but has had no success in that. <Isaiah Bryant MD - Last Filed: 01/25/23 01:18> Related Data Home medications: Home Medications Medication Instructions Recorded Confirmed buspirone 10 mg tablet 15 mg PO BID 01/25/21 escitalopram oxalate 20 mg tablet 20 mg PO DAILY 01/25/21 trazodone 50 mg tablet 200 mg PO QPM 01/25/21 aripiprazole 5 mg tablet (Abilify) 5 mg 01/24/23 <Isaiah Bryant MD - Last Filed: 01/25/23 01:18> Allergies/adverse reactions: Allergies Allergy/AdvReac Type Severity Reaction Status Date / Time No Known Allergies Allergy Unknown Verified 05/16/22 08:09 <Isaiah Bryant MD - Last Filed: 01/25/23 01:18> Review of Systems Review of Systems: A 10 system review of systems was completed on the patient and is negative except for what is stated in the HPI. Nursing and ancillary documentation was reviewed. <Isaiah Bryant MD - Last Filed: 01/25/23 01:18> PMFSH Past Medical History Medical History: Medical History Anxiety and depression Asthma Bulging lumbar disc Low back pain Migraines <Isaiah Bryant MD - Last Filed: 01/25/23 01:18> Surgical History Surgical History: Surgical History No history of previous surgery <Isaiah Bryant MD - Last Filed: 01/25/23 01:18> Family History Family History: Family History Other No significant family history <Isaiah Bryant MD - Last Filed: 01/25/23 01:18> Social History Social History: Social History Smoking packs per day: 1 Smoking cigarettes per day: 20.0 Years smoked: 10 Smoking pack-years: 10.00 Smoking status: Former smoker Tobacco type: e-cigarettes/vaping Alcohol intake: former Alcohol use details: none since 2015 Substance use: former Substance use type: heroin Last use: none since 2015 Living arrangements: with family Gender identity (if verbalized by the patient): Female <Isaiah Bryant MD - Last Filed: 01/25/23 01:18> Exam Narrative: GENERAL: Well-appearing, well-nourished, and in no acute distress. HEAD: Normocephalic, atraumatic. EYES: PERRLA and EOMI. ENT: Nares clear, no rhinorrhea or epistaxis. Mucous membranes moist. NECK: Supple. CHEST: Clear to auscultation. No respiratory distress. HEART: Regular rate and rhythm. No murmur heard. Normal peripheral pulses. ABDOMEN: Soft, nontender, nondistended, normal active bowel sounds. EXTREMITIES: Normal range of motion. No edema. SKIN: Warm, dry, no rash. NEURO: No focal deficits. Alert and oriented x3. PSYCH: Normal mood and affect. <Isaiah Bryant MD - Last Filed: 01/25/23 01:18> Course Course Emergency Course: Differential diagnosis includes suicidal ideation, depression, overdose, Laboratory studies were obtained which were
--- NOTE | 2023-01-25 03:29 | PC.NURSE ---
Pt medically cleared per Dr. Bryant. Crisis contacted.
--- NOTE | 2023-01-25 05:44 | PC.NURSE ---
contacted Crisis in regards to evaluating pt. They state they are on their way.
== END 2023-01-25 10:09 | disposition home or self-care (01) ==
PROVIDERS: Emergency Medicine; Emergency Provider Emergency Medicine
DX: F32.A Depression, unspecified (principal); R45.851 Suicidal ideations; F41.8 Other specified anxiety disorders; Z87.891 Personal history of nicotine dependence; Z20.822 Contact with and (suspected) exposure to COVID-19
CPT/HCPCS: 36415; 80053; 80307; 81001; 81025; 84443; 85025; 87086; 87088; 87636; 99284